=== PATIENT | female | born 1960 | race Caucasian/White ===

== ENCOUNTER 2019-02-13 09:53 | Outpatient (CLI) | payer OTHER ==
[2019-02-13] MEDS ORDERED: ASCO10004 PO (10:31)
[2019-02-13] MEDS ORDERED: TRAZ50TA66 PO (10:31)
[2019-02-13] MEDS ORDERED: LOSA100T14 PO (10:31)
[2019-02-13] MEDS ORDERED: ESOM40CA PO (10:31)
[2019-02-13] MEDS ORDERED: CHOL10002 PO (10:31)
[2019-02-13] MEDS ORDERED: HYDR25TA6 PO (10:31)
[2019-02-13] MEDS ORDERED: LEVO50TA5 PO (10:40)
[2019-02-13 11:09] LABS: ALANINE AMINOTRANSFERASE 27 U/L (12-78); ALBUMIN 3.6 g/dL (3.4-5.0); ANION GAP 4 mmol/L (5-15); CHLORIDE 107 mmol/L (98-107); CREATININE 0.92 mg/dL (0.55-1.02)
[2019-02-13 11:10] LABS: ALKALINE PHOSPHATASE 88 U/L (45-117); BILIRUBIN,TOTAL 0.3 mg/dL (0.2-1.0); TOTAL PROTEIN 7.7 g/dL (6.4-8.2)
== END 2019-02-13 23:59 | disposition home or self-care (01) ==
LOC: STAR 09:53
PROVIDERS: ATTEND Orthopaedic Surgery
DX: Z01.818 Encounter for other preprocedural examination (principal); M75.121 Complete rotator cuff tear or rupture of right shoulder, not specified as traumatic
CPT/HCPCS: 36415; 80053

== ENCOUNTER 2019-02-24 07:36 | Day surgery (SDC) | payer OTHER ==
[~2019-02-24] VITALS: Ht 160 cm; Wt 86.0 kg
[~2019-02-24 07:36] MED LIST: ASCO10004 PO; CHOL10002 PO; ESOM40CA PO; HYDR25TA6 PO; LEVO50TA5 PO; LOSA100T14 PO; TRAZ50TA66 PO
[2019-02-24] MEDS ORDERED: FENTANYL PF 100 MCG/2ML ONE ×2 (07:54→11:09)
[2019-02-24] MEDS ORDERED: MIDAZOLAM 1 MG/ML, 2ML ONE (07:54)
[2019-02-24] MEDS ORDERED: PROPOFOL 10 MG/ML, 20ML ONE (07:56)
[2019-02-24] MEDS ORDERED: NEOSTIGMINE 1 MG/ML, 10ML ONE (07:56)
[2019-02-24] MEDS ORDERED: DEXAMETHASONE 4 MG/ML, 1ML ONE (07:56)
[2019-02-24] MEDS ORDERED: ROCURONIUM 10MG/ML,5ML ONE (07:56)
[2019-02-24] MEDS ORDERED: GLYCOPYRROLATE 0.2MG/1ML, 5ML ONE (07:56)
[2019-02-24] MEDS ORDERED: CEFAZOLIN 1,000 MG ONE (07:56)
[2019-02-24] MEDS ORDERED: SUCCINYLCHOLINE 20 MG/ML, 10ML ONE (07:56)
[2019-02-24] MEDS ORDERED: ONDANSETRON 2MG/ML, 2ML ONE ×2 (07:56→12:53)
[2019-02-24] MEDS ORDERED: LACTATED RINGERS 1,000 ML IV SCH (08:11)
[2019-02-24 08:15] VITALS: BP 112/68
[2019-02-24] MEDS ORDERED: ACETAMINOPHEN 500 MG TABLET PO ONE (08:30)
[2019-02-24] MEDS ORDERED: GABAPENTIN 300 MG CAPSULE PO ONE (08:30)
[2019-02-24] MEDS ORDERED: SCOPOLAMINE PATCH, 1.5MG PATCH.TD72 TD ONE (09:00)
[2019-02-24] MEDS ORDERED: BUPIVACAINE/PF-EPI 0.25% 1:200K ONE (09:10)
[2019-02-24] MEDS ORDERED: BUPIVACAINE/PF 0.25% ONE (09:17)
[2019-02-24] MEDS ORDERED: LIDOCAINE 2% 100MG/5ML SYRINGE ONE (09:29)
[2019-02-24] MEDS ORDERED: EPHEDRINE 50 MG/ML, 1ML ONE (09:29)
[2019-02-24] MEDS ORDERED: ONDANSETRON 2MG/ML, 2ML IV PRN (09:30)
[2019-02-24] MEDS ORDERED: HYDROmorphone 2 MG/ML, 1ML IVPush PRN (09:30)
[2019-02-24] MEDS ORDERED: OXYcodone 5 MG/5 ML ORAL.SOL UDC PO PRN (09:30)
[2019-02-24] MEDS ORDERED: hydrALAzine 20 MG/ML, 1ML IV PRN (09:30)
[2019-02-24] MEDS ORDERED: LORazepam 2 MG/ML, 1ML IVPush PRN ×2 (09:30→14:30)
[2019-02-24] MEDS ORDERED: LABETALOL 5MG/ML, 20ML IV PRN (09:30)
[2019-02-24] MEDS ORDERED: PROMETHAZINE 25 MG/ML, 1ML IV PRN (09:30)
[2019-02-24] MEDS ORDERED: PROMETHAZINE 25 MG SUPP PR PRN ×2 (09:30→13:00)
[2019-02-24] MEDS ORDERED: FENTANYL PF 100 MCG/2ML IV PRN (09:30)
[2019-02-24] MEDS ORDERED: ONDANSETRON ODT 8 MG PO PRN (09:30)
[2019-02-24] MEDS ORDERED: EPINEPHRINE TOPICAL SOLN 1 MG/ML, 30ML ONE (10:00)
[2019-02-24] MEDS ORDERED: PROPOFOL 50 ML ONE ×2 (10:34→11:19)
[2019-02-24] MEDS ORDERED: PROMETHAZINE 25 MG/ML, 1ML ONE (12:07)
[2019-02-24] MEDS ORDERED: PROMETHAZINE 25 MG SUPP PR ONE (12:30)
[2019-02-24] MEDS ORDERED: HYDROmorphone 1 MG/ML, 1ML INJ ONE (13:06)
[2019-02-24] MEDS ORDERED: LORazepam 2 MG/ML, 1ML ONE (14:13)
== END 2019-02-24 14:45 | disposition home or self-care (01) ==
LOC: OR 07:36
PROVIDERS: ATTEND Orthopaedic Surgery
DX: M75.111 Incomplete rotator cuff tear or rupture of right shoulder, not specified as traumatic (principal); M65.811 Other synovitis and tenosynovitis, right shoulder; I10 Essential (primary) hypertension; K21.9 Gastro-esophageal reflux disease without esophagitis; E03.9 Hypothyroidism, unspecified; Z88.1 Allergy status to other antibiotic agents
CPT/HCPCS: 29823; 29827; 64415; C1713; J0330; J0690; J1100; J1170; J2250; J2405; J2704; J2710; J3010; J7120; Q4100; J3490